=== PATIENT | male | born 1980 | race Caucasian/White ===

== ENCOUNTER 2021-01-07 10:58 | Emergency (ER) | payer OTHER ==
[2021-01-07] MEDS ORDERED: diphenhydrAMINE 50 MG/ML SDV IM ONE (11:12)
[2021-01-07] MEDS ORDERED: Haloperidol Lactate 5 MG/ML SDV IM ONE (11:12)
[2021-01-07] MEDS ORDERED: LORazepam 2 MG/ML SDV IM ONE (11:12)
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
[2021-01-07 12:20] LABS: ACETAMINOPHEN 0 ug/mL (10-30)
== END 2021-01-07 15:39 ==
LOC: JD.ED 10:58
DX: F25.0 Schizoaffective disorder, bipolar type (principal); Z20.822 Contact with and (suspected) exposure to COVID-19; Z88.0 Allergy status to penicillin; Z88.8 Allergy status to other drugs, medicaments and biological substances; Z91.018 Allergy to other foods
CPT/HCPCS: 36415; 80053; 80143; 80179; 80306; 80307; 84443; 85007; 85027; 87635; 96372; 99284; J1200; J1630; J2060; U0002

== ENCOUNTER 2021-02-24 13:37 | Emergency (ER) | payer OTHER ==
[2021-02-24 15:19] LABS: ACETAMINOPHEN 0 ug/mL (10-30)
[2021-02-24 16:06] LABS: CORONAVIRUS COVID-19 NAA NEGATIVE (NEGATIVE)
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
== END 2021-02-24 16:55 ==
LOC: JD.ED 13:37
DX: F25.0 Schizoaffective disorder, bipolar type (principal); E11.9 Type 2 diabetes mellitus without complications; I10 Essential (primary) hypertension; Z91.018 Allergy to other foods; Z88.0 Allergy status to penicillin; Z88.8 Allergy status to other drugs, medicaments and biological substances; Z20.822 Contact with and (suspected) exposure to COVID-19
CPT/HCPCS: 0240U; 36415; 80053; 80143; 80179; 80306; 80307; 82947; 84443; 85025; 99285; 99284